=== PATIENT | male | born 1950 | race Caucasian/White ===

== ENCOUNTER 2017-02-03 06:36 | Day surgery (SDC) | payer BC, MEDICARE ==
[~2017-02-03 06:36] MED LIST: RINGER'S SOLUTION,LACTATED 1,000 ML IV PRN; ceFAZolin SODIUM 2 GM in DEXTROSE 5 % IN WATER 50 ML IV PRN
[2017-02-03] MEDS ORDERED: BUPIVACAINE HCL/EPINEPHRINE 50 ML VIAL IJ ONE (08:30)
[2017-02-03] MEDS ORDERED: RINGER'S SOLUTION,LACTATED 1,000 ML IV ONE (08:45)
[2017-02-03] MEDS ORDERED: RINGER'S SOLUTION,LACTATED 1,000 ML IV PRN (11:06)
[2017-02-03] MEDS ORDERED: oxyCODONE HCL/ACETAMINOPHEN 1 TAB TABLET PO ONE (11:06)
[2017-02-03 13:06] VITALS: BP 127/74
--- NOTE | 2017-02-03 18:01 | OR ---
Operative Report - Dictated Report Narrative: OPERATIVE REPORT DATE OF OPERATION: 02/03/2017 PREOPERATIVE DIAGNOSIS: Left inguinal hernia. No recent dedicated colon studies POSTOPERATIVE DIAGNOSIS: 3 mm rectal polyp (pathology pending). Left inguinal hernia OPERATION: Colonoscopy with hot biopsy forceps polypectomy in the rectum. Repair of left inguinal hernia using Bard mesh plug and patch SURGEON: Vicente Venegas MD ANESTHESIA: Gen. endotracheal Hernandez Mast CRNA INDICATIONS FOR PROCEDURE: The patient is a 66-year-old male who presents with enlarging and increasingly symptomatic left inguinal hernia. His last colonoscopy was normal in 2006. There is no family history of colon cancer FINDINGS: Significant diverticulosis. 3 mm rectal polyp (pathology pending). Sliding left indirect inguinal hernia with very small direct defect as well. NARRATIVE OF PROCEDURE: The patient was identified in the holding area, the surgical site was marked, and prior to the administration of anesthetic, a multidisciplinary timeout was observed. The patient was placed supine, SCDs were applied, and 2 g of intravenous Ancef administered. General endotracheal anesthetic was administered. COLONOSCOPY: With the patient in the left lateral position with appropriate padding and monitoring, the perineum was inspected. There was no evidence of pilonidal disease or skin breakdown. The external appearance of the anus was normal. Sphincter tone was good. The flexible fiberoptic colonoscope was inserted into the rectum which was insufflated with air. Immediately apparent was a 3 mm area of possible polypoid change. This was biopsied and then thoroughly destroyed with electrocautery. This site was seen to be complete and hemostatic. The rectal mucosa and submucosal vascular pattern appeared otherwise normal, the prep was seen to be complete. The scope was advanced through the sigmoid colon, which contained numerous large non-impacted noninflamed diverticular openings. The scope was advanced up the descending colon, and around the splenic flexure where the triangular haustral architecture of the transverse colon was seen. The scope was advanced across the transverse colon, around the hepatic flexure to the cecum, where the confluence of tenia and the ileocecal valve were identified. The mucosa at this level appeared normal. The scope was then slowly withdrawn in a circular fashion so that all aspects of colonic mucosa were inspected. The colon was normal in course and caliber. The haustral architecture appeared well preserved throughout with no evidence of external compression. The mucosa and submucosal vascular pattern appeared normal, specifically there was no gross evidence to suggest colitis or inflammatory bowel disease and no AV malformations were seen. The diverticulosis was moderate in degree, there were scattered diverticula throughout the colon but most concentrated in the sigmoid. No polyps proximal to the rectum were encountered. The scope was gradually withdrawn to the level of the rectum. As much insufflated air as possible was removed. The scope was withdrawn from the patient and the procedure terminated. REPAIR OF LEFT INGUINAL HERNIA: The patient was returned to the supine position without incident. The patient' s abdomen and genitalia were prepped with Betadine solution and the left groin isolated with 4 sterile towels. The remainder of the patient was covered with a sterile disposable drape. A transverse skin incision was made over the midportion of the left inguinal canal. Dissection was carried through subcutaneous tissue with electrocautery until the fascia of the external oblique aponeurosis was encountered. This was incised in the direction of its fibers down to and including the external inguinal ring. The ilioinguinal nerve was identified and protected throughout the procedure. Cord structures were encircled at the pubic tubercle, and a Bowie drain placed for traction. Inspection of the inguinal floor revealed a very small (3 mm) hernia defect with protruding fat which could be reduced. Inspection of the cord revealed a very large lipoma of the cord and a sliding indirect hernia. The lipoma was dissected free from the cord back to the internal inguinal ring and readily reduced into the properitoneal space. The herniated intestine was then reduced medial to the cord. The small defect in the inguinal floor was closed with 2 single interrupted sutures of 0 Ethibond. A Bard mesh plug was placed in the inguinal floor adjacent to the cord and secured circumferentially along the conjoined tendon and along the shelving border of the inguinal ligament with interrupted sutures of 0 Ethibond. 2 sutures were placed between the conjoined tendon and shelving border of the inguinal ligament medial to the cord, incorporating the lateral edge of the plug and forming a new internal inguinal ring. A tailored mesh patch was then placed in the inguinal floor and secured circumferentially to the pubic tubercle, along the conjoined tendon, and along the shelving border of the inguinal ligament with interrupted sutures of 0 Ethibond. The wings of the patch were wrapped around the cord structures and secured laterally with additional interrupted sutures of 0 Ethibond. The new internal inguinal ring was found to be of sufficient caliber to admit cord structures without undue constriction. The wound was inspected for hemostasis, which appeared complete. The cord structures and ilioinguinal nerve were returned to an anatomic position. After receiving a correct sponge needle and instrument count attention was turned to closing the wound. The external oblique aponeurosis was approximated with a running suture of 2-0 Vicryl. Subcutaneous tissues were approximated with interrupted sutures of 2-0 chromic. The skin was secured with a running subcuticular suture of 4-0 Vicryl. The operative site was washed and dried. A dressing of Dermabond, folded 4 x 4, and Medipore tape was applied. The scrotum was checked to ensure that the testicles were in anatomic position. The operative procedure was terminated at this point. The patient tolerated the anesthetic and procedure well without complication. There was no measurable blood loss. The rectal polyp was submitted to pathology. 0.25% Marcaine with epinephrine was used for local anesthetic infiltration. The patient was transferred to the recovery room awake , extubated, and in stable condition. The patient remained stable throughout a period of postoperative observation. He was able to tolerate PO intake. His pain was controlled with po Percocet. He was able to ambulate without assistance. The dressing remained dry. He was discharged home with instructions not to lift and not to drive. He is to keep the current dressing dry and intact for 48 hours, but then may shower and change the dressing daily or as needed. The patient was given a prescription for Percocet 5/325mg #30 1-2 po Q4-6hrs prn pain. The patient has phone numbers to call for questions or prn signs of wound infection or hematoma. A return office appointment was made for 1 week.
== END 2017-02-03 06:37 | disposition home or self-care (01) ==
LOC: AMB 06:36
PROVIDERS: ATTEND Surgery
PROC: 0DBP8ZX Excision of Rectum, Via Natural or Artificial Opening Endoscopic, Diagnostic (ICD-10-PCS; principal; 2017-02-03 08:00)
PROC: 0YU60JZ Supplement Left Inguinal Region with Synthetic Substitute, Open Approach (ICD-10-PCS; 2017-02-03 08:00)
DX: Z12.11 Encounter for screening for malignant neoplasm of colon (principal); K62.1 Rectal polyp; K57.30 Diverticulosis of large intestine without perforation or abscess without bleeding; K40.90 Unilateral inguinal hernia, without obstruction or gangrene, not specified as recurrent; Z68.28 Body mass index [BMI] 28.0-28.9, adult